=== PATIENT | female | born 1930 | race Caucasian/White ===

== ENCOUNTER 2017-11-11 11:38 | Emergency (ER) | payer OTHER, MEDICARE ==
[~2017-11-11] VITALS: Ht 157.5 cm; Wt 79.7 kg
[2017-11-11 11:43] VITALS: TEMP 37.1; Ht 157.5 cm; Wt 79.7 kg
[2017-11-11] MEDS ORDERED: SODIUM CHLORIDE 0.9% 1000ML 1,000 ML IV STA (12:07)
--- NOTE | 2017-11-11 12:23 | EMERGENCY ROOM VISIT NOTE ---
History Report prepared by Erich: Nghia Zhao Under the Supervision of: Dr. Aramis Strauss M.D. First contact with patient: 11:58 Chief Complaint: RECTAL BLEEDING Stated Complaint: HX GASTRIC BLEEDING ULCER, BLOOD IN STOOL,COUMADIN Nursing Triage Summary: Pt states takes coumadin, rectal bleeding started two days ago. Denies weakness or SOB. "Slight cramping" with bowel movement. History of Present Illness The patient is an 86 year old female who presents to the Emergency Room with complaints of persistent black tarry stools for the past 5 days. The patient states that she has a history of stomach ulcers, and she is currently on Coumadin, and this has happened multiple times. The patient states that she has decreased her Coumadin two days ago due to the bleeding, taking only 1 tablet per day as opposed to 2 tablets. She states that she is having some abdominal cramping, and the other day she had diarrhea. The patient denies any chest pain , shortness of breath, loss of consciousness, abnormal headaches, hematuria, and bright red stools. She states that she has not used any Pepto-Bismol recently. 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 she notes that she has had to have a blood transfusion in the past, and her last one was in July. Source of History: patient, family Onset: 5 days ago Position: other (rectum) Quality: other (black tarry stools) Timing: other (persistent) Associated Symptoms: + abdominal pain, No LOC, No headache, No chest pain, No SOB Review of Systems See HPI for pertinent positives and negatives. A total of ten systems were reviewed and were otherwise negative. Past Medical & Surgical Medical Problems: (1) Gastric ulcer Social History Smoking Status: Never Smoker Marital Status: Occupation Status: retired Current/Historical Medications Scheduled Aspirin (Aspirin Ec), 81 MG PO DAILY Atorvastatin (Lipitor), 1 TAB PO DAILY Furosemide (Lasix), 1 TAB PO DAILY Glimepiride (Glimepiride), 1 TAB PO DAILY Hydralazine Hcl (Apresoline), 1 TAB PO BID Metformin Hcl (Glucophage), 500 MG PO BID Metoprolol Succinate (Toprol Xl), 50 MG PO DAILY Nitroglycerin (Nitrostat), 0.4 MG UT PRN Pantoprazole (Protonix), 40 MG PO DAILY Warfarin Sodium (Coumadin), 1 TAB PO DAILY Miscellaneous Medications Clorazepate Dipotassium (Tranxene-T ), 3.75 MG PO Lisinopril (Zestril), 40 MG PO Multiple Vitamins W/ Minerals (Centrum Silver 50+Women) Polyethylene Glycol-Polyvinyl (Hypotears) Saline ([place] Nasal [place]) Vaginal Lubricant (Replens Vaginal Moisturiz) Allergies Coded Allergies: Azithromycin (Unverified Allergy, Unknown, unknown, 11/11/17) Calcium Channel Blockers (Unverified Allergy, Unknown, uknown, 11/11/17) Shellfish (Unverified Allergy, Unknown, unknown, 11/11/17) Sulfa Antibiotics (Unverified Allergy, Unknown, unknown, 11/11/17) Physical Exam Vital Signs Date Time Temp Pulse Resp B/P (MAP) Pulse Ox O2 Delivery O2 Flow Rate FiO2 11/11/17 14:29 68 20 159/74 96 11/11/17 13:57 71 20 159/74 95 Room Air 11/11/17 12:22 79 11/11/17 11:43 37.1 80 18 188/93 96 Room Air Physical Exam Physical Exam GENERAL: She is oriented to person, place, and time. She appears well- developed and well-nourished. She does not appear distressed. ____ HENT: Exam performed. Head: Normocephalic and atraumatic. Right Ear: External ear normal. No mastoid tenderness. Left Ear: External ear normal. No mastoid tenderness. Mouth/Throat: The oropharynx is clear and moist. No trismus in the jaw. No dental abscesses or uvula swelling. No oropharyngeal exudate or tonsillar abscesses. ____ EYES: Conjunctivae and EOM are normal. Pupils are equal, round, and reactive to light. Right eye exhibits no discharge. Left eye exhibits no discharge. No scleral icterus. ____ NECK: Normal range of motion. Neck supple. No JVD present. No spinous process tenderness present. No carotid bruit present. No rigidity. No tracheal deviation and normal range of motion present. No Brudzinski's sign and no Kernig 's sign noted. ____ CV: Normal rate, regular rhythm, normal heart sounds and intact distal pulses. There is no peripheral edema. Palpable radial pulses bue. ____ PULM/CHEST: Effort normal and breath sounds normal. No respiratory distress. No stridor. She has no wheezes. She has no rales. Chest Wall: She exhibits no tenderness. ____ ABD: The abdomen is soft. Bowel sounds are normal. She has no distension. No mass is present. There is no tenderness. There is no rebound, no guarding, no Houser's sign and no tenderness at McBurney's point. Rovsig negative RECTAL: No bright red blood per rectum. Heme occult positive. MUSC/SKEL: Normal range of motion. There is no peripheral edema, tenderness or deformity. LYMPH: No cervical adenopathy. ____ NEURO: The patient is alert and oriented. Sensation intact. No facial droop. SKIN: Skin is warm and dry. She is not diaphoretic. ____ PSYCH: She has a normal mood and affect. Her behavior is normal. Judgment and thought content normal. ____ Medical Decision & Procedures Laboratory Results 11/11/17 12:25 Red Blood Count 3.75, Mean Corpuscular Volume 93.9, Mean Corpuscular Hemoglobin 30.4, Mean Corpuscular Hemoglobin Concent 32.4, Mean Platelet Volume 10.2, Neutrophils (%) (Auto) 54.6, Lymphocytes (%) (Auto) 28.9, Monocytes (%) (Auto) 11.4, Eosinophils (%) (Auto) 4.0, Basophils (%) (Auto) 0.5, Neutrophils # (Auto ) 3.44, Lymphocytes # (Auto) 1.82, Monocytes # (Auto) 0.72, Eosinophils # (Auto ) 0.25, Basophils # (Auto) 0.03 11/11/17 12:25 Test 11/11/17 12:25 White Blood Count 6.30 K/uL (4.8-10.8) Red Blood Count 3.75 M/uL (4.2-5.4) Hemoglobin 11.4 g/dL (12.0-16.0) Hematocrit 35.2 % (37-47) Mean Corpuscular Volume 93.9 fL (80-100) Mean Corpuscular Hemoglobin 30.4 pg (25-34) Mean Corpuscular Hemoglobin Concent 32.4 g/dl (32-36) Platelet Count 216 K/uL (130-400) Mean Platelet Volume 10.2 fL (7.4-10.4) Neutrophils (%) (Auto) 54.6 % Lymphocytes (%) (Auto) 28.9 % Monocytes (%) (Auto) 11.4 % Eosinophils (%) (Auto) 4.0 % Basophils (%) (Auto) 0.5 % Neutrophils # (Auto) 3.44 K/uL (1.4-6.5) Lymphocytes # (Auto) 1.82 K/uL (1.2-3.4) Monocytes # (Auto) 0.72 K/uL (0.11-0.59) Eosinophils # (Auto) 0.25 K/uL (0-0.5) Basophils # (Auto) 0.03 K/uL (0-0.2) RDW Standard Deviation 52.7 fL (36.4-46.3) RDW Coefficient of Variation 15.6 % (11.5-14.5) Immature Granulocyte % (Auto) 0.6 % Immature Granulocyte # (Auto) 0.04 K/uL (0.00-0.02) Prothrombin Time 14.6 SECONDS (9.0-12.0) Prothromb Time International Ratio 1.4 (0.9-1.1) Activated Partial Thromboplast Time 28.0 SECONDS (21.0-31.0) Partial Thromboplastin Ratio 1.1 Anion Gap 8.0 mmol/L (3-11) Est Creatinine Clear Calc Drug Dose 34.0 ml/min Estimated GFR () 49.4 Estimated GFR (Non- 42.6 BUN/Creatinine Ratio 25.7 (10-20) Calcium Level 9.1 mg/dl (8.5-10.1) Total Bilirubin 0.9 mg/dl (0.2-1) Aspartate Amino Transf (AST/SGOT) 28 U/L (15-37) Alanine Aminotransferase (ALT/SGPT) 31 U/L (12-78) Alkaline Phosphatase 62 U/L (45-117) Total Protein 7.2 gm/dl (6.4-8.2) Albumin 3.4 gm/dl (3.4-5.0) Globulin 3.8 gm/dl (2.5-4.0) Albumin/Globulin Ratio 0.9 (0.9-2) Laboratory results reviewed by me Medications Administered Medications (Trade) Dose Ordered Sig/Claudy Route Start Time Stop Time Status Last Admin Dose Admin Sodium Chloride 1,000 ml @ 125 mls/hr Q8H STAT IV 11/11/17 12:07 11/11/17 15:07 DC 11/11/17 12:34 125 MLS/HR ED Course 1158: The patient was evaluated in room B10. A complete history and physical exam was performed. 1207: Sodium Chloride 1000 ml @ 125 mls/hr IV 1404: Vital signs stable. Labs within normal limits including an INR that is subtherapeutic at 1.4 and a stable hemoglobin level. I discussed the patient's case with Dr. Schwab [employer] operations consultant for patient's PCP, and he agrees to discharge the patient and continue taking 1 Coumadin tab per day and follow up with the anticoagulation clinic, and he will also call the clinic tomorrow.DISCHARGE - Plan of care discussed with patient and questions answered. The patient was given both verbal and printed discharge instructions. The patient verbalized understanding and ability to comply. The patient is to seek outpatient follow up as noted in the discharge instructions. The patient verbalized understanding and ability to comply. The patient is discharged in stable condition. The patient was instructed to return for worsening symptoms. Medical Decision Vital signs stable. Labs within normal limits including an INR that is subtherapeutic at 1.4 and a stable hemoglobin level. I discussed the patient's case with Dr. Schwab [employer] operations consultant for patient's PCP, and he agrees to discharge the patient and continue taking 1 Coumadin tab per day and follow up with the anticoagulation clinic, and he will also call the clinic tomorrow.DISCHARGE - Plan of care discussed with patient and questions answered. The patient was given both verbal and printed discharge instructions. The patient verbalized understanding and ability to comply. The patient is to seek outpatient follow up as noted in the discharge instructions. The patient verbalized understanding and ability to comply. The patient is discharged in stable condition. The patient was instructed to return for worsening symptoms. Medication Reconcilliation Current Medication List: was personally reviewed by me Blood Pressure Screening Patient's blood pressure: Elevated blood pressure Blood pressure disposition: Referred to PCP Consults Time Called: 1400 Consulting Physician: Dr. Schwab Returned Call: 1404 I discussed the patient's case with Dr. Schwab, and he agrees to discharge the patient and continue taking 1 Coumadin tab per day and follow up with the anticoagulation clinic, and he will also call the clinic tomorrow. Impression Primary Impression: GI bleed Scribe Attestation The scribe's documentation has been prepared under my direction and personally reviewed by me in its entirety. I confirm that the note above accurately reflects all work, treatment, procedures, and medical decision making performed by me. The chart was completed utilizing [email or web address] Speech voice recognition software. Grammatical errors, random word insertions, pronoun errors, and incomplete sentences are an occasional consequence of this system due to software limitations, ambient noise, and hardware issues. Any formal questions or concerns about the content, text, or information contained within the body of this dictation should be directly addressed to the physician for clarification. Departure Information Dispostion Home / Self-Care Referrals Ayaka Cleary D.O. (PCP) Forms HOME CARE DOCUMENTATION FORM, IMPORTANT VISIT INFORMATION, WORK / SCHOOL INSTRUCTIONS Patient Instructions GI Bleeding - [facility], [facility] Additional Instructions Follow-up in 1-2 days call for appointment Follow-up with the anticoagulation clinic Keep taking 1 Coumadin tablet per day until you see the anticoagulation clinic
[2017-11-11 12:42] LABS: BASO % 0.5 %; BASO ABS # 0.03 K/uL (0-0.2); EOS ABS # 0.25 K/uL (0-0.5); HEMATOCRIT 35.2 % (37-47); HEMOGLOBIN 11.4 g/dL (12.0-16.0); IG# 0.04 K/uL (0.00-0.02); LYMPH % 28.9 %; LYMPH ABS # 1.82 K/uL (1.2-3.4); MEAN CELL VOLUME 93.9 fL (80-100); MEAN CORPUSCULAR HEMOGLOBIN 30.4 pg (25-34); MEAN CORPUSCULAR HGB CONC 32.4 g/dl (32-36); MEAN PLATELET VOLUME 10.2 fL (7.4-10.4); MONO % 11.4 %; MONO ABS # 0.72 K/uL (0.11-0.59); NEUT % 54.6 %; NEUT ABS # 3.44 K/uL (1.4-6.5); PLATELET COUNT 216 K/uL (130-400); RED CELL DISTRIBUTION WIDTH CV 15.6 % (11.5-14.5); RED CELL DISTRIBUTION WIDTH SD 52.7 fL (36.4-46.3)
[2017-11-11 12:49] LABS: INR 1.4 (0.9-1.1)
[2017-11-11 12:59] LABS: ALBUMIN 3.4 gm/dl (3.4-5.0); CALCIUM 9.1 mg/dl (8.5-10.1); CREATININE 1.16 mg/dl (0.60-1.20); POTASSIUM 3.6 mmol/L (3.5-5.1)
[2017-11-11 13:02] LABS: TOTAL PROTEIN 7.2 gm/dl (6.4-8.2)
[2017-11-11] MEDS ORDERED: METO-217 PO (13:02)
[2017-11-11] MEDS ORDERED: GLIM2TAB2 PO (13:02)
[2017-11-11] MEDS ORDERED: [UNRECOGNIZED DRUG - CODE] (13:02)
[2017-11-11] MEDS ORDERED: LISI40TA PO (13:02)
[2017-11-11] MEDS ORDERED: GLC/500 PO (13:02)
[2017-11-11] MEDS ORDERED: MULT-1092 (13:02)
[2017-11-11] MEDS ORDERED: FURO40TA3 PO (13:02)
[2017-11-11] MEDS ORDERED: WARF2TAB PO (13:02)
[2017-11-11] MEDS ORDERED: SALI0.6510 (13:02)
[2017-11-11] MEDS ORDERED: NTRGSL/4 UT (13:02)
[2017-11-11] MEDS ORDERED: [UNRECOGNIZED DRUG - OTHER] (13:02)
[2017-11-11] MEDS ORDERED: HYDR-4715 PO (13:02)
[2017-11-11] MEDS ORDERED: ASPI81TA28 PO (13:02)
[2017-11-11] MEDS ORDERED: ATOR-22 PO (13:02)
[2017-11-11] MEDS ORDERED: CLOR3.7515 PO (13:02)
[2017-11-11] MEDS ORDERED: PANT40TA PO (13:02)
[2017-11-11 14:29] VITALS: BP 159/74; PULSE 68; O2SAT 96
== END 2017-11-11 14:30 | disposition home or self-care (01) ==
LOC: C.EDB 11:41
DX: K92.2 Gastrointestinal hemorrhage, unspecified (principal); Z79.01 Long term (current) use of anticoagulants; I48.91 Unspecified atrial fibrillation; Z86.73 Personal history of transient ischemic attack (TIA), and cerebral infarction without residual deficits; Z79.82 Long term (current) use of aspirin; Z79.84 Long term (current) use of oral hypoglycemic drugs; Z79.899 Other long term (current) drug therapy; Z88.2 Allergy status to sulfonamides; Z88.1 Allergy status to other antibiotic agents; Z91.013 Allergy to seafood; Z88.8 Allergy status to other drugs, medicaments and biological substances